=== PATIENT | male | born 1955 | race Caucasian/White ===

== ENCOUNTER 2024-06-06 10:50 | Observation (INO) | payer OTHER ==
--- NOTE | 2024-06-03 15:01 | RAD REPORT ---
Procedure: Chest Pa And Lat (2 Views) HISTORY: Preop for hernia surgery COMPARISON: none FINDINGS: The lungs appear clear of acute infiltrate. No significant pleural effusion noted. The heart is normal size. IMPRESSION: No acute abnormality is displayed.
[2024-06-03 15:40] LABS: Absolute Lymphocytes (CBC) 1.5 K/uL (0.7-4.9); Absolute Monocytes 0.5 K/uL (0.1-1.3); Absolute Neutrophil 3.4 K/uL (1.8-8.0); Basophils % 0.6 % (0-1.3); Eosinophils % 0.8 % (0-4.4); Lymphocytes % 27.2 % (15.3-44.8); MCH 33.5 pg (27.0-35.0); MCV 95.7 fL (80-100); MPV 7.9 fL (7.6-11.3); Monocytes % 9.6 % (3.3-12.3); Neutrophils % 61.8 % (41.7-73.7); Nucleated Red Blood Cells % 0.1 % (0-0); Platelets 174 thou/uL (152-406); RBC Red Blood Cell Count 4.49 M/uL (4.33-5.43)
[2024-06-03 15:59] LABS: Anion Gap 9.7 mEq/L (5.0-15.0); Potassium 3.7 mEq/L (3.5-5.1)
[2024-06-06] MEDS: Ringers Lactate 1,000 ML IV ONE (11:03)
[2024-06-06] MEDS ORDERED: ROCURONIUM 50 MG/5 ML VIAL IV ONE ×3 (12:13→14:20)
[2024-06-06] MEDS ORDERED: FENTANYL CITR 100 MCG/2 ML ONE ×2 (13:03→14:16)
[2024-06-06] MEDS ORDERED: ONDANSETRON 4 MG/2 ML VIAL ONE (13:03)
[2024-06-06] MEDS ORDERED: LIDOCAINE 2% MPF 5 ML VIAL ONE (13:03)
[2024-06-06] MEDS ORDERED: propofoL 200 MG/20 ML VIAL IV ONE (13:03)
[2024-06-06] MEDS ORDERED: GLYCOPYRROLATE 0.2 MG/ML SYR ONE (13:03)
[2024-06-06] MEDS ORDERED: NEOSTIGMINE 1 MG/ML -10 ML VIAL ONE (13:03)
[2024-06-06] MEDS ORDERED: MIDAZOLAM HCL 2 MG/2 ML INJ ONE (13:04)
[2024-06-06] MEDS: CEFAZOLIN SODIUM 1 GM/VIAL ONE (13:35)
[2024-06-06] MEDS ORDERED: dexAMETHasone 10 MG/ML VIAL ONE (13:51)
[2024-06-06] MEDS ORDERED: EPHEDRINE SULF 50 MG/ML VIAL ONE (14:10)
--- NOTE | 2024-06-06 14:46 | P.BOP ---
Preoperative diagnosis: left inguinal hrnia Postoperative diagnosis: same Primary procedure: Laparoscopic repair of left inguinal hernia with mesh Estimated blood loss: <10cc Specimen: none Findings: left inguinal hernia, bradycardia episode Anesthesia: General Complications: None Implants: 3d mesh medium Transferred to: Recovery Room Condition: Good
[2024-06-06] MEDS: NACHLORIDE 0.45% 1,000 ML IV SCH (15:00)
[2024-06-06 17:02] VITALS: BMI 24.4
[2024-06-06] MEDS: FLU (Fluarix Triv) TS24-25(6MOS UP)/PF 45 MCG/0.5 ML Syringe IM ONE (17:45)
[2024-06-06] MEDS: PNEUMOCOCCAL VACCINE 0.5 ML IMVAC ONE (18:00)
[2024-06-06] MEDS: CEFAZOLIN 1 GM in NA CHLORIDE 0.9% 50 ML IVPB SCH (18:14)
[2024-06-06] MEDS ORDERED: IBUPROFEN 400 MG TAB PO PRN (19:59)
[2024-06-07 04:45] LABS: Absolute Lymphocytes (CBC) 0.7 K/uL (0.7-4.9); Absolute Monocytes 0.5 K/uL (0.1-1.3); Absolute Neutrophil 7.3 K/uL (1.8-8.0); Basophils % 0.2 % (0-1.3); Hematocrit 41.3 % (39.6-49.0); Hemoglobin 14.5 g/dL (13.6-17.9); Lymphocytes % 8.6 % (15.3-44.8); MCH 33.1 pg (27.0-35.0); MCV 94.6 fL (80-100); MPV 7.1 fL (7.6-11.3); Monocytes % 5.4 % (3.3-12.3); Neutrophils % 85.8 % (41.7-73.7); Platelets 168 thou/uL (152-406); RBC Red Blood Cell Count 4.36 M/uL (4.33-5.43); Red Cell Distribution Width 13.5 % (12.1-15.2)
[2024-06-07 05:07] LABS: Albumin/Globulin Ratio 1.1 (1.1-1.8); Anion Gap 8.9 mEq/L (5.0-15.0); Bilirubin Total 0.6 mg/dL (0.2-1.0); Globulin 2.8 g/dL (2.3-3.5); Magnesium 1.9 mg/dL (1.6-2.4); Phosphorus 2.3 mg/dL (2.5-4.9); Potassium 3.9 mEq/L (3.5-5.1); Protein, Total 5.8 g/dL (6.4-8.2)
[2024-06-07 05:33] LABS: Band Neutrophils 7 % (0-1); Differential Total Cells Count 100; Lymphocytes 13 % (15-42); Monocytes 7 % (0-10); Reactive Lymphocytes 1 %; Segmented Neutrophils 72 % (40-80)
[2024-06-07 05:34] LABS: Blood Morphology Comment NOT SEEN (NOT SEEN); Platelet Estimate ADEQ
--- NOTE | 2024-06-07 11:36 | P.DS ---
Admission Date: 06/06/24 Discharge Date: 06/07/24 Disposition: ROUTINE DISCHARGE Discharge Condition: GOOD Brief History of Present Illness: s/p inguinal hernia, cardiac arrhytmia Hospital Course: unremarkable Vital Signs/Physical Exam: Temp Pulse Resp BP Pulse Ox 97.8 F 66 14 107/71 97 06/07/24 08:00 06/07/24 08:00 06/07/24 08:00 06/07/24 08:00 06/07/24 08:00 General: Alert, In no apparent distress, Oriented x3, Cooperative, Cachectic HEENT: Normocephalic, PERRLA, EOMI Neck: Supple Respiratory: Clear to auscultation bilaterally, Normal air movement Cardiovascular: No edema, Normal pulses, Regular rate/rhythm, Normal S1 S2, No murmurs Gastrointestinal: Normal bowel sounds, Soft and benign, No rebound, No guarding Musculoskeletal: No clubbing, No swelling, No contractures, No erythema, No tenderness, No warmth Integumentary: No rashes, No breakdown, No erythema, No warmth, No cyanosis Neurological: Normal gait, Normal speech, Normal strength at 5/5 x4 extr, Normal tone, Sensation intact, Cranial nerves 3-12 intact External genitalia: No edema Rectal: Deferred Laboratory Data at Discharge: WBC 8.50 thou/uL (4.3-10.9) 06/07/24 04:14 Hgb 14.5 g/dL (13.6-17.9) 06/07/24 04:14 Hct 41.3 % (39.6-49.0) 06/07/24 04:14 Plt Count 168 thou/uL (152-406) 06/07/24 04:14 Sodium 139 mEq/L (136-145) 06/07/24 04:14 Potassium 3.9 mEq/L (3.5-5.1) 06/07/24 04:14 BUN 12 mg/dL (7-18) 06/07/24 04:14 Creatinine 1.02 mg/dL (0.70-1.30) 06/07/24 04:14 Glucose 142 mg/dL (74-106) H 06/07/24 04:14 Phosphorus 2.3 mg/dL (2.5-4.9) L 06/07/24 04:14 Magnesium 1.9 mg/dL (1.6-2.4) 06/07/24 04:14 Total Bilirubin 0.6 mg/dL (0.2-1.0) 06/07/24 04:14 AST 14 U/L (15-37) L 06/07/24 04:14 ALT 19 U/L (16-61) 06/07/24 04:14 Alkaline Phosphatase 53 U/L (45-117) 06/07/24 04:14 Home Medications: Famotidine [Pepcid] 20 mg PO DAILYPRN PRN 06/03/24 Loratadine [Claritin] 10 mg PO DAILY 06/03/24 Physician Discharge Instructions: Keep surgical area clean and dry for 24h then may remove outer dressing and shower. Keep lacy intact. Diet: AHA Activity: No lifting more than 10 lbs Followup: Jorge Joyce, DO [Primary Care Provider] - If your Symptoms Worsen Delroy Sebastian MD [ACTIVE - CAN ADMIT] - 1 Week
[2024-06-07 12:25] VITALS: BP 117/81; TEMP 98.1
--- NOTE | 2024-06-07 12:34 | P.CNS ---
Date of Consult: 06/07/24 Reason for Consult: Medical Management, Bradycardia Requesting Physician: Delroy Sebastian History of Present Illness: 69 yo M, PMH: inguinal hernia Patient was undergoing a laparoscopic repair of left inguinal hernia with Dr. Sebastian on 06/06 when he was noted to have a brief episode of bradycardia during surgery. Episode was described as possible 1-2 sec pause in heart rate. Per report patient returned back to sinus rhythm within a few seconds of episode with HR improving to the 50-60s. Patient seen on morning rounds 06/07. He reports feeling fine, back to his normal self. Patient denies any chest pain or shortness of breath. Denied Dizziness/lightheadedness. He was monitored on telemetry without any significant reported event while hospitalized. Check EKG and trend troponin's to rule out any heart damage. Allergies No Known Allergies Allergy (Verified 06/06/24 11:44) Home Medications: Famotidine [Pepcid] 20 mg PO DAILYPRN PRN 06/03/24 Loratadine [Claritin] 10 mg PO DAILY 06/03/24 - Past Medical/Surgical History Diabetic: No -: appendix rupture - Social History Alcohol use: Yes Caffeine use: Yes Place of Residence: Home Review of Systems 10-point ROS is otherwise unremarkable Physical Examination Temp Pulse Resp BP Pulse Ox 98.1 F 81 14 117/81 98 06/07/24 12:00 06/07/24 12:00 06/07/24 12:00 06/07/24 12:00 06/07/24 12:00 Laboratory Data (last 24 hrs) 06/07/24 06/07/24 04:14 04:14 WBC 8.50 Hgb 14.5 Hct 41.3 Plt Count 168 Sodium 139 Potassium 3.9 BUN 12 Creatinine 1.02 Glucose 142 H Phosphorus 2.3 L Magnesium 1.9 Total Bilirubin 0.6 AST 14 L ALT 19 Alkaline Phosphatase 53 Physician Review Additional Text: Physical Exam: GEN: Alert, oriented, NAD CV: Regular rate and rhythm, no edema Pulm: Nonlabored respirations on room air, clear bilaterally ABD: soft, nontender, nondistended Integumentary: Abdomen with dressing in place c/d/i Neuro: Normal speech, normal affect Problem List: Bradycardic episode Left inguinal hernia s/p laparoscopic repair (06/06) Patient was found to have an brief episode of bradicardia during a laparoscopic repair of left inguinal hernia with Dr. Sebastian 06/06. Episode was described as possible 1-2 sec pause in heart rate. Patient seen on rounds 06/07 morning. He reports feeling fine, back to his normal self. Patient denies any chest pain or shortness of breath. Denied Dizziness/lightheadedness. No significant arrhythmia seen on telemetry overnight. Initial troponin negative Unclear exact etiology of bradycardia. No further inpatient workup needed given negative work up and asymptomatic Advised patient to follow up with PCP for further discussion, and to consider outpatient stress test in the near future. Code: Full Dispo: Home, per Surgery Medically cleared for discharge. Time Spent Managing Pts Care (In Minutes): 55
[2024-06-07 15:49] VITALS: O2SAT 97
--- NOTE | 2024-06-08 12:39 | EKG ---
Test Date: 2024-06-07 Test Time: 08:15:51 Charging Car Operator: KATHLEEN MEASUREMENT RESULTS: Intervals: Rate: 76 [place]: 188 QRSD: 84 QT: 362 QTc: 407 [place]: P: [place]: 188 QRS: 160 T: 150 INTERPRETIVE STATEMENTS: Suspect arm lead reversal, interpretation assumes no reversal Normal sinus rhythm Lateral infarct, age undetermined Abnormal ECG Compared to ECG 06/03/2024 14:12:23 Myocardial infarct finding now present Electronically Signed On 06-08-24 12:36:41 CDT by Barrera Milan
--- NOTE | 2024-06-08 12:55 | EKG ---
Test Date: 2024-06-03 Test Time: 14:12:23 Head Bookkeeper: DIONNE MEASUREMENT RESULTS: Intervals: Rate: 62 DC: 194 QRSD: 80 QT: 370 QTc: 375 [place]: P: 59 DC: 194 QRS: 58 T: 63 INTERPRETIVE STATEMENTS: Normal sinus rhythm Normal ECG No previous ECG available for comparison Electronically Signed On 06-08-24 12:43:15 CDT by Barrera Milan
== END 2024-06-07 12:45 | disposition home or self-care (01) ==
LOC: OR 10:50 → 2ND 14:49
PROVIDERS: ADMIT Surgery; ATTEND Surgery
PROC: 0YU64JZ Supplement Left Inguinal Region with Synthetic Substitute, Percutaneous Endoscopic Approach (ICD-10-PCS; principal; 2024-06-06 13:35)
DX: K40.90 Unilateral inguinal hernia, without obstruction or gangrene, not specified as recurrent (principal); R00.1 Bradycardia, unspecified
CPT/HCPCS: 93005 ×2; 85025 ×2; 80048; 36415 ×2; 83735; 84100; 84484; 80053; 71046; 94010; 94760; 49650; J2704; J2710; J2003; J2250; J3010 ×2; J1100; J2405; J7120; J0690 ×4; C1781; G0378; G0379